=== PATIENT | female | born 1970 | race Hispanic/Latino ===

== ENCOUNTER 2020-12-01 13:46 | Emergency (ER) | payer SELFPAY ==
[2020-12-01 14:37] LABS: #Basophils 0.1 10x3/uL (0.0-0.2); #Eosinphils 0.1 10x3/uL (0.0-0.5); #Monocytes 1.1 10x3/uL (0.0-1.1); #Neutrophils 6.9 10x3/uL (1.5-8.4); %Basophils 0.6 % (0.0-2.0); %Lymphocytes 33.7 % (18.0-47.0); %Monocytes 9.1 % (0.0-10.0); Hemoglobin 10.6 g/dL (12.0-15.5); Mean Corpuscular HGB CONC 28.5 g/dL (32.0-36.0); Mean Corpuscular Hemoglobin 21.6 pg (27.0-33.0); Mean Corpuscular Volume 75.9 fl (81.6-98.3); Mean Platelet Volume 9.8 fl (7.4-10.4); Platelet Count 434 10x3/uL (150-450); RBC Distribution Width 17.5 % (11.5-14.5); White Blood Cell (WBC) Count 12.5 10x3/uL (3.5-10.5)
[2020-12-01 14:49] LABS: ALT (SGPT) 11 U/L (8-55); AST (SGOT) 10 U/L (5-34); Alkaline Phosphatase 62 U/L (40-110); Anion Gap 12 mmol/L (10-20); BUN (Urea Nitrogen) 16 mg/dL (7.0-18.7); Bilirubin, Total 0.3 mg/dL (0.2-1.2); Calc. Creatinine Clearance 0 mL/min (70-130); Calcium 8.8 mg/dL (7.8-10.44); Carbon Dioxide 28 mmol/L (22-29); Chloride 101 mmol/L (98-107); Glucose 89 mg/dL (70-105); Sodium 137 mmol/L (136-145)
[2020-12-01 16:16] LABS: Hypochromia MODERATE=16-30 cells (100X) (0-5/hpf)
== END 2020-12-01 15:17 | disposition home or self-care (01) ==
LOC: CSHERS 13:46
DX: R20.2 Paresthesia of skin (principal)
CPT/HCPCS: 36416; 70450; 80053; 84484; 85025; 93005

== ENCOUNTER 2022-05-15 13:34 | Emergency (ER) | payer SELFPAY ==
[2022-05-15 14:16] LABS: #Basophils 0.1 10x3/uL (0.0-0.2); #Eosinphils 0.3 10x3/uL (0.0-0.5); #Monocytes 0.7 10x3/uL (0.0-1.1); #Neutrophils 5.6 10x3/uL (1.5-8.4); %Basophils 0.6 % (0.0-2.0); %Eosinophils 2.5 % (0.0-6.0); %Lymphocytes 32.5 % (18.0-47.0); %Monocytes 6.8 % (0.0-10.0); %Neutrophils 56.5 % (40.0-75.0); Hemoglobin 9.8 g/dL (12.0-15.5); Mean Corpuscular HGB CONC 29.7 g/dL (32.0-36.0); Mean Corpuscular Hemoglobin 24.3 pg (27.0-33.0); Mean Corpuscular Volume 81.9 fl (81.6-98.3); Mean Platelet Volume 9.7 fl (7.4-10.4); Platelet Count 396 10x3/uL (150-450); RBC Distribution Width 15.5 % (11.5-14.5); Red Blood Cell (RBC) Count 4.03 10x6/uL (3.90-5.03); White Blood Cell (WBC) Count 9.8 10x3/uL (3.5-10.5)
[2022-05-15 14:32] LABS: BHCG - Serum Negative (NEGATIVE); Pregs Control Background? CLEAR/WHITE (CLR/WHITE); Pregs Control Bar Appear? YES (CONTROL BAR)
[2022-05-15 14:45] LABS: Hypochromia SLIGHT = 6-15 cells (100X) (0-5/hpf); Microcytosis SLIGHT = 6-15 cells (100X) (0-5/hpf); Platelet Morphology Comment Appears Adequate
== END 2022-05-15 14:55 | disposition home or self-care (01) ==
LOC: CSHERS 13:34
DX: N93.9 Abnormal uterine and vaginal bleeding, unspecified (principal)
CPT/HCPCS: 84703; 85025; 99284

== ENCOUNTER 2022-06-09 03:16 | Emergency (ER) | payer SELFPAY ==
[2022-06-09] MEDS ORDERED: Ketorolac Tromethamine 30 MG/ML VIAL ONE ×2 (03:50→03:53)
[2022-06-09] MEDS ORDERED: Ondansetron PF 4 MG/2 ML Vial ONE (03:51)
[2022-06-09 03:57] LABS: #Basophils 0.1 10x3/uL (0.0-0.2); #Eosinphils 0.3 10x3/uL (0.0-0.5); #Monocytes 0.5 10x3/uL (0.0-1.1); #Neutrophils 5.7 10x3/uL (1.5-8.4); %Basophils 0.6 % (0.0-2.0); %Lymphocytes 37.7 % (18.0-47.0); %Neutrophils 53.2 % (40.0-75.0); Hemoglobin 10.1 g/dL (12.0-15.5); Mean Corpuscular HGB CONC 29.7 g/dL (32.0-36.0); Mean Corpuscular Hemoglobin 23.5 pg (27.0-33.0); Mean Corpuscular Volume 79.3 fl (81.6-98.3); Mean Platelet Volume 9.5 fl (7.4-10.4); Platelet Count 427 10x3/uL (150-450); RBC Distribution Width 15.1 % (11.5-14.5); Red Blood Cell (RBC) Count 4.29 10x6/uL (3.90-5.03); White Blood Cell (WBC) Count 10.7 10x3/uL (3.5-10.5)
[2022-06-09 04:03] LABS: BHCG - Serum Negative (NEGATIVE); Pregs Control Background? CLEAR/WHITE (CLR/WHITE); Pregs Control Bar Appear? YES (CONTROL BAR)
[2022-06-09 04:34] LABS: AST (SGOT) 11 U/L (5-34); Albumin 3.9 g/dL (3.5-5.0); Alkaline Phosphatase 59 U/L (40-110); Anion Gap 16 mmol/L (10-20); BUN (Urea Nitrogen) 13 mg/dL (7.0-18.7); Bilirubin, Total 0.3 mg/dL (0.2-1.2); Calc. Creatinine Clearance 0 mL/min (70-130); Calcium 8.6 mg/dL (7.8-10.44); Carbon Dioxide 19 mmol/L (22-29); Chloride 108 mmol/L (98-107); Estimated GFR 91; Globulin 3.4 g/dL (2.4-3.5); Glucose 123 mg/dL (70-105); Lipase 14 U/L (8-78); Potassium 3.7 mmol/L (3.5-5.1); Protein, Total 7.3 g/dL (6.0-8.3); Sodium 139 mmol/L (136-145)
[2022-06-09] MEDS ORDERED: Acetaminophen 500 MG TAB ONE (04:51)
[2022-06-09 04:54] LABS: ALT (SGPT) 6 U/L (8-55)
== END 2022-06-09 06:12 | disposition home or self-care (01) ==
LOC: CSHERS 03:16
DX: R10.30 Lower abdominal pain, unspecified (principal)
CPT/HCPCS: 76856; 80053; 83690; 84703; 85025; 96374; 96375; J1885; J2405

== ENCOUNTER 2022-10-17 08:01 | Emergency (ER) | payer BC, SELFPAY | END 2022-10-17 08:35 | disposition home or self-care (01) | LOC: CSHERS 08:01 | DX: G62.9 Polyneuropathy, unspecified (principal) | CPT/HCPCS: 99283 ==

== ENCOUNTER 2025-04-17 08:58 | Emergency (ER) | payer OTHER, SELFPAY | END 2025-04-17 09:15 | disposition home or self-care (01) | LOC: CSHERS 08:58 | DX: J06.9 Acute upper respiratory infection, unspecified (principal) | CPT/HCPCS: 99283 ==

== ENCOUNTER 2025-05-28 19:48 | Emergency (ER) | payer SELFPAY ==
[2025-05-28] MEDS ORDERED: Famotidine 20 MG TAB ONE (20:18)
[2025-05-28 20:50] LABS: #Basophils 0.13 10x3/uL (0.0-0.2); #Eosinophils 0.15 10x3/uL (0.0-0.5); #Monocytes 0.83 10x3/uL (0.0-1.1); #Neutrophils 7.87 10x3/uL (1.5-8.4); %Basophils 0.9 % (0.0-2.0); %Eosinophils 1.0 % (0.0-6.0); %Lymphocytes 37.0 % (18.0-47.0); %Monocytes 5.7 % (0.0-10.0); %Neutrophils 53.8 % (40.0-75.0); Hematocrit 43.7 % (34.9-44.5); Hemoglobin 13.8 g/dL (12.0-15.5); Mean Corpuscular Hemoglobin 26.9 pg (27.0-33.0); Mean Corpuscular Volume 85.2 fL (81.6-98.3); Platelet Count 337 10x3/uL (150-450); Red Blood Cell (RBC) Count 5.13 10x6/uL (3.90-5.03); White Blood Cell (WBC) Count 14.63 10x3/uL (3.5-10.5)
[2025-05-28 21:00] LABS: ALT (SGPT) 20 U/L (Less than 34); AST (SGOT) 21 U/L (11-34); Albumin 3.4 g/dL (3.1-4.5); Alkaline Phosphatase 47 U/L (40-110); Anion Gap 10 mmol/L (10-20); BUN (Urea Nitrogen) 14 mg/dL (9.8-20.1); Bilirubin, Total 0.4 mg/dL (0.3-1.2); Calc. Creatinine Clearance 0 mL/min (70-130); Calcium 8.3 mg/dL (7.8-10.44); Carbon Dioxide 28 mmol/L (22-29); Chloride 106 mmol/L (98-107); Globulin 2.3 g/dL (2.4-3.5); Glucose 159 mg/dL (70-105); Potassium 3.7 mmol/L (3.5-5.1); Sodium 140 mmol/L (136-145)
[2025-05-28 21:03] LABS: Troponin I Less than 0.010 ng/mL (< 0.028)
[2025-05-28 22:01] LABS: Actual Bicarbonate (HCO3v) 26.9 mEq/L (22-28); Analyzer IN Cardio CS ER; Base Excess 1.4 mEq/L (-2 - +2); Calcium, Ionized (venous) 1.11 mmol/L (1.16-1.32); Chloride (VBG) 103 mmol/L (98-106); Hematocrit-VBG 44 % (36.0-47.0); Hemoglobin (Hb) 15.0 g/dL (11.7-16.0); Potassium (VBG) 3.51 mmol/L (3.70-5.30); Puncture Site Other Site; RapidComm Collect By RN; Sodium 140 mmol/L (133-146)
== END 2025-05-28 22:22 | disposition home or self-care (01) ==
LOC: CSHERS 19:48
DX: J20.9 Acute bronchitis, unspecified (principal)
CPT/HCPCS: 71250; 80053; 82805; 83605; 83880; 84484; 85025; 93005; 94640; 94760